=== PATIENT | female | born 1980 | race Two or more races ===

== ENCOUNTER 2024-11-16 11:07 | Emergency (ER) | payer MEDICAID, SELFPAY ==
[2024-11-16 11:08] VITALS: BMI 29.6
[2024-11-16 11:33] VITALS: BP 166/99; PULSE 93; RESP 18; TEMP 36.9; O2SAT 98
--- NOTE | 2024-11-16 11:44 | EKG_ITS ---
[facility] Test Date: 2024-11-16 Pat Name: KARLEE PERRY Department: Room: - Gender: Female Floral Specialist: : 1980 Requested By: Jayson Cunningham Order Number: [id number] Reading MD: Jayson Cunningham Measurements Intervals [place] Rate: 75 P: 51 OR: 147 QRS: 16 QRSD: 80 T: 41 QT: 373 QTc: 418 Interpretive Statements SINUS RHYTHM No previous ECG available for comparison /store/S0/[id number]/[id number].pdf
[2024-11-16] MEDS: KETOROLAC INJ 60 MG/2 ML VIAL 30 MG IM (11:57)
[2024-11-16 12:31] LABS: Basophils # (Auto) 0.0 Thou/mm3 (0.0-0.2); Basophils % (Auto) 0 % (0-2.5); Eosinophils # (Auto) 0.1 Thou/mm3 (0.0-0.5); Eosinophils % (Auto) 0 % (0-10); Hematocrit 39.8 % (36.0-46.0); Hemoglobin 13.7 g/dL (12.0-16.0); Immature Granulocytes Auto 0.04 Thou/mm3 (0.00-0.00); Lymphocytes # (Auto) 1.8 Thou/mm3 (1.0-4.8); Lymphocytes % (Auto) 13 % (10-50); Mean Corpuscular HGB Conc 34.4 g/dl (31.0-37.0); Mean Corpuscular Hemoglobin 29.5 pg (25.0-35.0); Mean Corpuscular Volume 86 fL (80-100); Monocytes # (Auto) 0.4 Thou/mm3 (0.0-0.8); Monocytes % (Auto) 3 % (0-12); Neutrophils # (Auto) 11.4 Thou/mm3 (1.8-7.7); Neutrophils % (Auto) 83 % (37-80); Nucleated Red Blood Cell # 0.00 Thou/mm3 (0.00-0.00); Nucleated Red Blood Cell % 0 /100 WBC (0); Platelet Count 302 Thou/mm3 (140-440); RDW Standard Deviation 38.7 fL (36.4-46.3); Red Blood Count 4.65 Miln/mm3 (4.00-5.20); White Blood Count 13.8 Thou/mm3 (3.6-11.0)
[2024-11-16 12:49] LABS: B-Type Natriuretic Peptide 80 pg/mL (0-100)
[2024-11-16 12:52] LABS: Alanine Aminotransferase 15 U/L (10-49); Albumin, Serum 4.3 gm/dL (3.5-5.0); Albumin/Globulin Ratio 1.5 (1.2-2.2); Alkaline Phosphatase 84 U/L (46-116); Anion Gap 7 (7-16); Aspartate Amino Transferase 21 U/L (0-34); BUN/Creatinine Ratio 8 Ratio (12-20); Bilirubin,Total 0.7 mg/dL (0.3-1.2); Blood Urea Nitrogen 7 mg/dL (9-23); Calcium 8.8 mg/dL (8.3-10.6); Calcium (Corrected) 8.8 mg/dL (8.5-10.1); Carbon Dioxide 28.0 mMol/L (20.0-31.0); Chloride 104 mMol/L (98-107); Creatinine (Component) 0.9 mg/dL (0.6-1.3); Estimated Creatinine Clearance 72.2 mL/min (>60); Globulin 2.8 gm/dL (2.3-3.5); Glucose 237 mg/dL (74-106); Osmolality,Calculated 283 (275-295); Potassium 4.0 mMol/L (3.4-5.1); Sodium 139 mMol/L (136-145); Total Protein 7.1 gm/dL (5.7-8.2); Troponin I < 0.002 ng/mL (0.0-0.045); eGFR > 60 See Note
--- NOTE | 2024-11-16 14:02 | EDNOTE_ITS ---
<Statement entered by Jacinta Stein MD - 11/26/24 19:38> As co-signing physician, I was present and available for consult prn. I concur with the plan and care as documented by the midlevel provider. ED Chest Pain RME/HPI General Chief Complaint: Back Pain/Injury Stated Complaint: L) BACK/HIP PAIN 02/25 Time Seen by Provider: 11/16/24 11:37 Source: patient Arrival date/time: 11/16/24 11:07 44-year-old female with no known medical history presents to the emergency room with a chief complaint of lower back pain that radiates down her left leg x 2 days. Patient is also complaining of numbness to her left hands and some palpitations. Mode of arrival: ambulatory Limitations: no limitations Related Data Previous Rx's ?Medication ?Instructions ?Recorded cefuroxime axetil 500 mg tablet 500 mg PO BID #14 tabs 12/05/23 Allergies Allergy/AdvReac Type Severity Reaction Status Date / Time No Known Allergies Allergy Verified 11/16/24 11:11 Review of Systems Review of Systems Systems Reviewed: All systems reviewed, normal except as documented Constitutional Constitutional: Reports system reviewed and no additional complaints, except as documented, Denies fatigue, Denies fever(s), Denies headache(s) and Denies weakness Eyes Eyes: Reports system reviewed and no additional complaints, except as documented, Denies blurry vision and Denies change in vision ENT Ears, Nose, Mouth, and Throat: Reports system reviewed and no additional complaints, except as documented, Denies otalgia, Denies headache(s), Denies nasal congestion, Denies throat swelling and Denies vertigo Cardiovascular Cardiovascular: Reports system reviewed and no additional complaints, except as documented, Reports chest pain, Denies dyspnea, Denies dyspnea on exertion and Reports rapid heart rate Respiratory Respiratory: Reports system reviewed and no additional complaints, except as documented, Denies chest congestion, Denies cough, Denies dyspnea, Denies dyspnea on exertion and Denies wheezing Gastrointestinal Gastrointestinal: Reports system reviewed and no additional complaints, except as documented, Denies abdominal pain, Denies cramping, Denies nausea and Denies vomiting Genitourinary Genitourinary: Reports system reviewed and no additional complaints, except as documented Musculoskeletal Musculoskeletal: Reports system reviewed and no additional complaints, except as documented, Reports arthralgias, Denies back pain and Reports radiating pain into limb Integumentary/Breasts Skin/Breast: Reports system reviewed and no additional complaints, except as documented and Denies wounds Neurologic Neurologic: Reports system reviewed and no additional complaints, except as documented, Denies confusion, Denies headache(s), Denies lack of coordination, Denies vertigo and Denies weakness Psychiatric Psychiatric: Reports system reviewed and no additional complaints, except as documented, Denies anxiety, Denies confusion, Denies depression, Denies paranoia, Denies suicidal ideation and Denies tactile hallucinations Endocrine Endocrine: Reports system reviewed and no additional complaints, except as documented and Denies fatigue Hematologic/Lymphatic Hematologic/Lymphatic: Reports system reviewed and no additional complaints, except as documented and Denies lymphadenopathy Allergic/Immunologic Allergic/Immunologic: Reports system reviewed and no additional complaints, except as documented, Denies throat swelling, Denies urticaria and Denies wheezing Past Medical History Social History SMOKING STATUS: Never smoker ED Exam General Limitations: Present no limitations General appearance: Present alert and in no apparent distress Head Head exam: Present atraumatic Eye Eye exam: Present normal appearance, PERRL and EOMI ENT ENT exam: Present normal exam, normal oropharynx and mucous membranes moist Neck Neck exam: Present normal inspection, full ROM and trachea midline Chest Chest inspection: Present normal inspection and symmetric chest wall rise Respiratory Respiratory exam: Present normal lung sounds bilaterally; Absent respiratory distress, wheezes, stridor, accessory muscle use or prolonged expiratory phase Cardiovascular Cardiovascular exam: Present regular rate, normal rhythm and normal heart sounds; Absent tachycardia Abdominal Exam Abdominal exam: Present soft and normal bowel sounds; Absent tenderness Extremities Exam Extremities exam: Present normal inspection and full ROM Back Exam Back exam: Present normal inspection, full ROM and sciatic notch tenderness (L) Neurological Exam Neurological exam: Present alert, oriented X3 and CN II-XII intact Psychiatric Psychiatric exam: Present normal affect and normal mood Skin Skin exam: Present warm, dry, intact and normal color Course Quality Measures none Orders Category Date Time Status EKG (ED ONLY) *Do not use* NOW Care 11/16/24 11:44 Completed EKG (ED Only) Stat Exams 11/16/24 11:44 Draft B-Type Natriuretic Peptide Stat Lab 11/16/24 12:03 Completed CBC Stat Lab 11/16/24 12:03 Completed Comprehensive Metabolic Panel Stat Lab 11/16/24 12:03 Completed Troponin I Stat Lab 11/16/24 12:03 Completed HYDROcodone*/APAP 5/325 [[place] 5/325] Med 11/16/24 14:02 Discontinued 1 tab PO X1 ONE Ketorolac Inj [Toradol Inj] Med 11/16/24 11:44 Discontinued 30 mg IM X1 ONE Ondansetron Odt [Zofran Odt] Med 11/16/24 14:02 Discontinued 4 mg PO X1 ONE Vital Signs Vital signs: Vital Signs Temperature 98.4 F 11/16/24 11:33 Pulse Rate 93 11/16/24 11:33 Respiratory Rate 18 11/16/24 11:33 Blood Pressure 166/99 H 11/16/24 11:33 Pulse Oximetry (%) 98 11/16/24 11:33 PROCEDURES: EKG Interpretation #1: Date of EK11/16/24 Rate: 75 Interpretation: Interpreted by me EKG Impression: Normal sinus rhythm Chest Pain MDM Narrative MDM Narrative:: 44-year-old female with no known medical history presents to the emergency room with a chief complaint of lower back pain that radiates down her left leg x 2 days. Patient is also complaining of numbness to her left hands and some palpitations. Is hemodynamically stable and in no apparent distress Physical examination shows a strong and regular rhythm S1 and S2 noted no murmurs. Lung sounds are clear bilaterally there is no wheezing stridor or any abnormal breath sounds. EKG was completed and showed normal sinus rhythm at [address] deviation Patient is also complaining of left leg pain and tenderness. Patient has some tenderness to the sciatic notch on the left side. Patient was given Toradol and reevaluated in 1 hour with significant improvement to her symptoms Patient was discharged and educated to follow-up with primary care provider in the next 24 to 48 hours and return to the emergency room for any evidence of worsening signs or symptoms Patient data External records reviewed:: [facility] previous records Clinical information provided by:: patient Social determinants that could affect healthcare access:: none Patient has the following chronic illnesses:: No chronic illness How is presenting disease/condition affected by chronic disease/condition?: no chronic disease Evaluation data The following diagnostics were reviewed and interpreted by me:: lab results and radiology exam(s) Lab and/or radiology exams considered but not ordered:: Labs and radiology exams considered in order Interpretation Summary: N/A Medications / Prescriptions Medications or Prescriptions considered but not ordered:: Medication given Medication administrations:: Medication Administration History Discontinued Medications Hydrocodone Bitart/Acetaminophen (Hydrocodone/Apap 5/325 Tablet) 1 tab PO X1 ONE Stop: 11/16/24 14:03 Last Admin: 11/16/24 14:07 Dose: 1 tab Documented By: MARISELA Ketorolac Tromethamine (Ketorolac Inj 60 Mg/2 Ml Vial) 30 mg IM X1 ONE Stop: 11/16/24 11:45 Last Admin: 11/16/24 11:57 Dose: 30 mg Documented By: SULEMA Ondansetron HCl (Ondansetron Odt 4 Mg Tabrap) 4 mg PO X1 ONE; Protocol Stop: 11/16/24 14:03 Last Admin: 11/16/24 14:08 Dose: 4 mg Documented By: MARISELA Medication given Consultations Consultation(s) initiated? (list below): No Diagnosis Chest Pain Differential Diagnosis: atypical chest pain, st elevation myocardial infarction, costochondritis, chest pain and other (Sciatica/lumbar pain) Most likely diagnosis given after review of the tests above:: Sciatica Admission Indicated Admission indicated?: not indicated Admission Request Was there a request for admission?: No Disposition Plan Disposition Plan: Discharge Discharge Attestation Discharge Attestation: The patient and all family members were given an opportunity to ask questions and understood the discharge instructions. Discharge instructions specifically effects, indications for sooner follow up or return to the emergency department, and the expected course of current diagnosis. Patient condition: Stable Discharge Plan Plan Patient Disposition: HOME (Self Care) Discharge Disposition comment: Stable Prescriptions/Referrals Prescriptions/Med Rec: No Action cefuroxime axetil 500 mg tablet 500 mg PO BID Qty: 14 0RF Referrals: Carmina Hatch MD [Primary Care Provider] - In 1 week Problem List Clinical Impression: Sciatica Patient/Caregiver Discharge Instructions Education Materials: ED Sciatica Additional Instructions: Por favor, consulte con miranda m?dico de cabecera en las pr?ximas 24 a 48 horas. Miranda examen card?aco fue normal. Por favor, consulte con miranda m?dico de cabecera para miranda dolor ci?maisha. Bekah derivaci?n a un fisioterapeuta o quiropr?ctico puede ayudarle con esto. Si observa cualquier signo de empeoramiento de los signos o s?ntomas, acuda a urgencias de inmediato. Print Language: Vincentian Stand Alone Forms: Mary Ellen Award Info., Patient Portal Info Letter PA/RINK RAT Supervising Physician PA/RINK RAT Supervising Physician: Dr. STEIN
[2024-11-16] MEDS: HYDROcodone/APAP 5/325 TABLET 1 TAB PO (14:07)
[2024-11-16] MEDS: ONDANSETRON ODT 4 MG TABRAP PO (14:08)
== END 2024-11-16 14:15 | disposition home or self-care (01) ==
PROVIDERS: Nurse Practitioner Family; Emergency Provider Emergency Medicine; PCP Obstetrics & Gynecology
DX: M54.42 Lumbago with sciatica, left side (principal); R00.2 Palpitations; R20.0 Anesthesia of skin
CPT/HCPCS: 36415; 80053; 83880; 84484; 85025; 93005; 96372; 99283; J1885; Q0162; A9270